=== PATIENT | female | born 1990 | race Caucasian/White ===

== ENCOUNTER → 2017-08-06 | Outpatient (CLI) | payer OTHER | END | disposition home or self-care (01) | LOC: RAD 10:54 | PROVIDERS: ATTEND Family Medicine | DX: N28.1 Cyst of kidney, acquired (principal); N39.0 Urinary tract infection, site not specified | CPT/HCPCS: 76770 ==

== ENCOUNTER → 2018-06-23 | Outpatient (CLI) | payer OTHER ==
[~2018-06-23] MED LIST: CHOL200024 PO; MULT-516 PO; RANI150T23 PO
== END | disposition home or self-care (01) ==
LOC: STAR 08:04
PROVIDERS: ATTEND Surgery
DX: Z02.9 Encounter for administrative examinations, unspecified (principal)

== ENCOUNTER 2018-07-06 07:04 | Day surgery (SDC) | payer OTHER ==
[2018-06-23 08:43] VITALS: BP 111/78
[~2018-07-06] VITALS: Ht 157.5 cm; Wt 74.0 kg
[2018-07-06] MEDS ORDERED: LACTATED RINGERS 1,000 ML IV SCH (07:33)
[2018-07-06] MEDS ORDERED: ACET-1600 PO (07:36)
[2018-07-06 07:39] LABS: HCG UR SG 1.016 (1.003-1.030)
[2018-07-06] MEDS ORDERED: LIDOCAINE-MPF 1%, 2ML INFIL ONE (08:00)
[2018-07-06] MEDS ORDERED: LIDOCAINE-MPF 2% ,5ML ONE (08:30)
[2018-07-06] MEDS ORDERED: ROCURONIUM 10MG/ML,5ML ONE (08:30)
[2018-07-06] MEDS ORDERED: PROPOFOL 10 MG/ML, 20ML ONE (08:30)
[2018-07-06] MEDS ORDERED: CEFOTETAN PMX 2GM/50ML 50 ML ONE (08:32)
[2018-07-06] MEDS ORDERED: BUPIVACAINE/PF-EPI 0.5% 1:200K ONE (08:47)
[2018-07-06] MEDS ORDERED: MIDAZOLAM 1 MG/ML, 2ML ONE (08:58)
[2018-07-06] MEDS ORDERED: FENTANYL PF 250 MCG/5ML ONE (08:58)
[2018-07-06] MEDS ORDERED: KETOROLAC 30 MG/1 ML ONE (09:17)
[2018-07-06] MEDS ORDERED: ONDANSETRON 2MG/ML, 2ML ONE ×2 (09:17)
[2018-07-06] MEDS ORDERED: DEXAMETHASONE 4 MG/ML, 1ML ONE ×2 (09:17)
[2018-07-06] MEDS ORDERED: ACETAMINOPHEN 650 MG/20.3 ML UDC ONE (09:54)
[2018-07-06] MEDS ORDERED: FENTANYL PF 100 MCG/2ML ONE (09:54)
[2018-07-06] MEDS ORDERED: OXYcodone 5 MG/5 ML ORAL.SOL UDC ONE (09:54)
[2018-07-06] MEDS ORDERED: MEPERIDINE/PF 50 MG/ML ONE (09:54)
[2018-07-06] MEDS: MEPERIDINE/PF 25MG/0.5ML IVPush PRN ×2 (09:55→10:18)
[2018-07-06] MEDS ORDERED: PROMETHAZINE 25 MG/ML, 1ML ONE (09:57)
[2018-07-06] MEDS ORDERED: LORazepam 2 MG/ML, 1ML IVPush PRN (10:00)
[2018-07-06] MEDS ORDERED: HYDROmorphone 1 MG/ML, 1ML IV PRN (10:00)
[2018-07-06] MEDS ORDERED: PROMETHAZINE 25 MG/ML, 1ML IV PRN (10:00)
[2018-07-06] MEDS ORDERED: OXYcodone 5 MG/5 ML ORAL.SOL UDC PO PRN (10:00)
[2018-07-06] MEDS ORDERED: FENTANYL PF 100 MCG/2ML IV PRN (10:00)
[2018-07-06] MEDS ORDERED: LABETALOL 5MG/ML, 20ML IV PRN (10:00)
[2018-07-06] MEDS ORDERED: hydrALAzine 20 MG/ML, 1ML IV PRN (10:00)
[2018-07-06] MEDS ORDERED: ACETAMINOPHEN 325 MG TABLET PO PRN (10:00)
[2018-07-06] MEDS ORDERED: HALOPERIDOL 5 MG/ML IV PRN (10:00)
== END 2018-07-06 14:05 | disposition home or self-care (01) ==
LOC: OUT 07:04
PROVIDERS: ATTEND Surgery
DX: K80.10 Calculus of gallbladder with chronic cholecystitis without obstruction (principal); K21.9 Gastro-esophageal reflux disease without esophagitis; Z91.040 Latex allergy status; Z88.8 Allergy status to other drugs, medicaments and biological substances; Z91.018 Allergy to other foods; Z87.891 Personal history of nicotine dependence; Z72.89 Other problems related to lifestyle
CPT/HCPCS: 47562; 81025; 88304; J1100; J1885; J2175; J2405; J2550; J2704; J3490; J7120